=== PATIENT | female | born 1955 | race Caucasian/White ===

== ENCOUNTER 2025-06-26 11:24 | Emergency (ER) | payer MEDICARE, SELFPAY ==
--- NOTE | ~2025-06-26 | CT_ITS ---
EXAMINATION: CT abdomen pelvis w con DATE: 06/26/2025 14:50 INDICATION: Abdominal pain. TECHNIQUE: Computed tomography (CT) of the abdomen and pelvis was performed with 100 mL Omnipaque 350 intravenous contrast. Automated exposure control and iterative reconstruction technique were employed. The dose-length product was 1245.12 mGy-cm. COMPARISON: None. FINDINGS: The visualized portions of the lung bases demonstrate mild atelectasis. No pleural effusion. The heart size is normal. No pericardial effusion. The liver and spleen are normal. There are changes of cholecystectomy. The pancreas, adrenal glands, and kidneys are normal. There are scattered dive rticula in the colon. There is wall thickening of the sigmoid colon with surrounding fat stranding centered at a diverticulum, consistent with diverticulitis. The appendix is normal. There are no pathologically enlarged lymph nodes. There is trace pelvic ascites. There is a stent in left common iliac vein. There is severe lumbar spondylosis and moderate thoracic spondylosis. There is mild chronic anterior wedging of multiple thoracic vertebral bodies. IMPRESSION: 1. Acute sigmoid diverticulitis. No perforation or abscess. Reviewed, dictated and finalized at location E.
[2025-06-26 11:41] VITALS: BP 180/90; PULSE 90; RESP 16; TEMP 36.8; O2SAT 98
[2025-06-26 13:12] VITALS: BP 149/86; PULSE 86; RESP 20; O2SAT 98; O2SAT 99
--- NOTE | 2025-06-26 13:21 | ED.GENADULT ---
HPI - General Adult General Chief complaint: Abdominal Pain Stated complaint: Abd pain x 3 days-Hx diverticulitis Time Seen by Provider: 06/26/25 13:08 History of Present Illness HPI narrative: 70-year-old female presents to the emergency department for evaluation for lower abdominal pain. Patient does have a prior history of diverticulitis but patient has never required any surgical intervention for the diverticulitis. Patient reports he has never had any complicated versions of this. Patient reports symptoms started approximately 3-4 days ago. Related Data Allergies Allergy/AdvReac Type Severity Reaction Status Date / Time lisinopril Allergy Severe angioedema Verified 06/26/25 11:26 Review of Systems Review of Systems: All systems reviewed & are unremarkable except as noted in HPI and below Exam Narrative: APPEARANCE: Well appearing, no pain, no distress, well-nourished. HEAD: normocephalic, atraumatic. EYES: PERRLA/EOMI, conjunctivae clear. NOSE: Normal no drainage EARS:TMS clear with good light reflex. THROAT: Pharynx clear, no exudate. NECK: Supple. No adenopathy, no masses. RESPIRATORY: Airway patent, respirations nonlabored. Clear to auscultation bilaterally, no rales, rhonchi, wheezing. CARDIOVASCULAR: Regular rate and rhythm without murmurs rubs or gallops. ABDOMINAL: Left lower quadrant tenderness to palpation MUSCULOSKELETAL: Moves all extremities. Strength/ROM intact, No edema, No calf tenderness. NEURO: Alert. Cranial nerves II through XII intact. Good gait. Good coordination SKIN: Warm, dry. Normal Color Course Vital Signs Vital signs: Vital Signs Temperature 98.2 F 06/26/25 11:41 Pulse Rate 90 06/26/25 11:41 Respiratory Rate 16 06/26/25 11:41 Blood Pressure 180/90 H 06/26/25 11:41 Pulse Oximetry 98 06/26/25 11:41 Temperature 98.2 F 06/26/25 11:41 Pulse Rate 86 06/26/25 13:12 Respiratory Rate 20 06/26/25 13:12 Blood Pressure 149/86 H 06/26/25 13:12 Pulse Oximetry 98 06/26/25 13:12 Medical Decision Making [facility] Narrative Medical decision making narrative: 70-year-old female presenting to the emergency department for evaluation of 3-4 days of left lower quadrant pain which patient attributed to diverticulitis. Patient is currently afebrile with no leukocytosis and hemoglobin of 12.6. Patient has no significant acute abnormalities on her CMP urine was negative for infection. CT scan does show evidence of acute uncomplicated diverticulitis. Patient was started on Augmentin the emergency department. Differential Diagnosis Differential Diagnosis: Colitis, diverticulitis, perforation, bowel obstruction, UTI ureteral calculi Vital Signs Vital Signs: Vital Signs Temperature 98.2 F 06/26/25 11:41 Pulse Rate 90 06/26/25 11:41 Respiratory Rate 16 06/26/25 11:41 Blood Pressure 180/90 H 06/26/25 11:41 Pulse Oximetry 98 06/26/25 11:41 Temperature 98.2 F 06/26/25 11:41 Pulse Rate 86 06/26/25 13:12 Respiratory Rate 20 06/26/25 13:12 Blood Pressure 149/86 H 06/26/25 13:12 Pulse Oximetry 98 06/26/25 13:12 Lab Data Lab results reviewed: Yes I reviewed the patient's lab results. 06/26/25 13:34 06/26/25 13:34 Labs: Lab Results 06/26/25 06/26/25 Range/Units 13:29 13:34 WBC 9.8 (4.5-10.0) K/mm3 RBC 4.39 (4.2-5.4) M/mm3 Hgb 12.6 (12.0-15.0) g/dL Hct 39.5 (37.0-47.0) % MCV 90.0 (80-100) fl MCH 28.7 (26-34) pg MCHC 31.9 L (32-36) g/dl RDW 12.4 (11.5-14.5) % Plt Count 188 (150-375) k/mm3 MPV 11.4 H (7.4-10.4) fl Immature Gran % (Auto) 0.4 (0-0.5) % Neut % (Auto) 67.7 (45.5-73.1) % Lymph % (Auto) 20.6 (18.3-44.2) % [place] % (Auto) 8.2 (2.6-8.5) % Eos % (Auto) 2.7 (0-4.4) % Baso % (Auto) 0.4 (0.2-1.2) % Lymph # (Auto) 2.01 (0.9-3.2) K/mm3 [place] # (Auto) 0.8 H (0.1-0.6) K/mm3 Eos # (Auto) 0.3 (0-0.3) K/mm3 Baso # (Auto) 0.0 (0.0-0.1) K/mm3 Abs Immat Gran (auto) 0.04 H (0.00-0.031) K/mm3 Absolute Neuts (auto) 6.6 (1.3-6.7) K/mm3 Absolute Nucleated RBC 0.000 (0.0-0.012) K/mm3 Nucleated RBC % 0.0 (0.0-0.2) % Sodium 139 (137-145) mmol/L Potassium 3.9 (3.4-5.0) mmol/L Chloride 103 (98-107) mmol/L Carbon Dioxide 30 (22-30) mmol/L Anion Gap 6 (4-12) mmol/L BUN 17 (7-17) mg/dL Creatinine 1.03 H (0.7-1.0) mg/dL Estim Creat Clear Calc 51 ml/min Estimated GFR 53 L (59 - ) Glucose 68 (65-110) mg/dL Calcium 9.0 (8.4-10.2) mg/dL Total Bilirubin 0.4 (0.2-1.3) mg/dL AST 36 (14-36) U/L ALT 27 (6-35) U/L Alkaline Phosphatase 96 (38-126) U/L Total Protein 7.7 (6.3-8.2) g/dL Albumin 4.4 (3.5-5.1) g/dL Lipase 152 (23-300) U/L Urine Color Yellow (Yellow) Urine Appearance Cloudy H (Clear) Urine pH 7.5 (5.0-9.0) Ur Specific [place] 1.014 (1.001-1.035) Urine Protein Negative (Negative) mg/dL Urine Glucose (UA) Negative (Negative) mg/dL Urine Ketones Negative (Negative) mg/dL Ur Blood (Man) Negative (Negative) Urine Nitrate Negative (Negative) Urine Bilirubin Negative (Negative) Urine Urobilinogen 0.2 (<2.0) mg/dL Leukocyte Esterase Rfl Trace H (Negative) ESTEFANY/UL Urine RBC 0-2 (0-2) /hpf Urine WBC 0-5 (0-3) /hpf Ur Squamous Epith Cells None seen (Few) /hpf Urine Bacteria None seen /hpf Urine Casts 0-2 Imaging Data Radiologist's impression: Impressions Abdomen/Pelvis CT 06/26/25 15:02 IMPRESSION: 1. Acute sigmoid diverticulitis. No perforation or abscess. Discharge Plan Discharge Clinical Impression: Sigmoid diverticulitis Patient Disposition: Home Condition: Stable Instructions: Antibiotic Form, Diverticulitis (DC), Abdominal Pain (ED) Additional Instructions: Antibiotic as directed until completed for sigmoid diverticulitis. Zofran as needed for nausea control. [place] as needed for pain control. Have close follow-up with GI. If you have any worsening symptoms then please call or return to the emergency department. Patient Language: Polish Prescriptions: New hydrocodone-acetaminophen 5-325 mg tablet 1 tablet PO Q12H PRN (Reason: pain) Qty: 14 0RF amoxicillin-pot clavulanate 875-125 mg tablet 1 tablet PO Q12H 7 Days Qty: 14 0RF ondansetron 4 mg tablet,disintegrating 4 mg PO Q8H PRN (Reason: nausea and vomiting) Qty: 14 0RF Follow-up/Referrals: Coleen,DO Benjamin [Primary Care Provider, Family Practice] Migue Rose MD [Physician, Gastroenterology]
[2025-06-26 13:44] LABS: Add Urine Microscopic? YES; Appearance Urine Cloudy (Clear); Glucose Urine UA Negative (Negative); Leukocyte Esterase Ur Trace LEU/UL (Negative); Nitrate Urine Negative (Negative); Non Pathogenic Casts 0-2; Specific Grav Ur 1.014 (1.001-1.035)
[2025-06-26 13:45] LABS: Hematocrit 39.5 % (37.0-47.0); Hemoglobin 12.6 g/dL (12.0-15.0); Immature Granulocyte Percent A 0.4 % (0-0.5); Lymphocytes Absolute Auto 2.01 K/mm3 (0.9-3.2); Mean Corpuscular HGB Conc 31.9 g/dl (32-36); Mean Corpuscular Hemoglobin 28.7 pg (26-34); Mean Corpuscular Volume 90.0 fl (80-100); Nucleated Red Blood Cells Absolute Auto 0.000 K/mm3 (0.0-0.012); Nucleated Red Blood Cells Perc 0.0 % (0.0-0.2); Platelet Count Result 188 k/mm3 (150-375); Red Blood Count 4.39 M/mm3 (4.2-5.4); White Blood Count 9.8 K/mm3 (4.5-10.0)
[2025-06-26 14:00] LABS: Alanine Aminotransferase 27 U/L (6-35); Albumin Level 4.4 g/dL (3.5-5.1); Alkaline Phosphatase 96 U/L (38-126); Anion Gap 6 mmol/L (4-12); Aspartate Amino Transferase 36 U/L (14-36); Bilirubin,Total 0.4 mg/dL (0.2-1.3); Blood Urea Nitrogen 17 mg/dL (7-17); Calcium 9.0 mg/dL (8.4-10.2); Carbon Dioxide 30 mmol/L (22-30); Chloride 103 mmol/L (98-107); Estimated CRCL calculation 51 ml/min; Estimated Glomerular Filt Rate 53; Glucose 68 mg/dL (65-110); Lipase 152 U/L (23-300); Potassium 3.9 mmol/L (3.4-5.0); Sodium 139 mmol/L (137-145); Total Protein 7.7 g/dL (6.3-8.2)
--- OUTSIDE RECORDS SUMMARY | 2025-06-26 14:15 | XMS_ITS | Encounter Summary ---
Author Organization [facility] Address 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
--- OUTSIDE RECORDS SUMMARY | 2025-06-26 14:15 | XMS_ITS | Encounter Summary ---
Author Organization [facility] Address [address] [place] [address] Care Team Providers Care Ict Managers Name Role Phone Erika Tolliver MD Primary Care Provider Encounter Details Date Type Department Care Team (Late st Contact Info) Description 03/02/1999 Outpatient Historical [facility] Internal Medicine [facility] [address] [place] [phone] Erika Tolliver MD [address] [place] [phone] Social History Tobacco Use Types Packs/Day Years Used Date Smoking Tobacco: Never Assessed Comments Unknown Sex and Gender Information Value Date Recorded Sex Assigned at Not on file 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
--- OUTSIDE RECORDS SUMMARY | 2025-06-26 14:15 | XMS_ITS | Encounter Summary ---
Author Organization [facility] Address 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
--- OUTSIDE RECORDS SUMMARY | 2025-06-26 14:15 | XMS_ITS | Encounter Summary ---
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
--- OUTSIDE RECORDS SUMMARY | 2025-06-26 14:15 | XMS_ITS | Clinical Summary ---
Author Organization [facility] Address [address] [place] [address] Care Team Providers Care Reading Efficiency Course Director Name Role Phone Salo Ogden MD Primary Care Provider [phone] Source Comments [facility],non-[facility] Affiliates and Associated Physician Practices is amultiple site organization consisting of ambulatory clinics and hospital sitesin [place], [place], [place] and [place]. This disclosure is being madepursuant to the Care Everywhere program and may not contain all information available regarding this patient. 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 Gender Identity Not on file Sexual Orientation Not on file Plan of Treatment Health Maintenance Due Date Last Done Comments BONE DENSITY TESTING 1955 COLOGUARD (AGES 45-75) - COL ON CA SCREENING 1957 COLON MONITORING 1957 COLONOSCOPY - COLON CA SCREENING 1957 CT COLONOGRAPHY - COLON CA SCREENING 1957 Colorectal Cancer Screening 1957 FIT - COLON CA SCREENING 1957 FLEX SIG - COLON CA SCREENING 1957 LIPID TESTING 1957 MAMMOGRAM 1957 HEPATITIS C SCREENING 03/07/1975 DTAP/TDAP/TD VACCINES (1 - Tdap) 1976 PNEUMOCOCCAL VACCINE 50+ (1 of 1 - PCV) 2007 ZOSTER VACCINE (1 of 2) 2007 DEPRESSION SCREENING 10/09/2024 COVID-19 VACCINE (2023-2 5 season) 2025 INFLUENZA VACCINE (#1) 2025 Respiratory Syncytial Virus (RSV) Vaccine Pt: or over 60 yrs (1 - 1-dose 75+ series) 2032 HEPATITIS B VACCINE Aged Out No longe r eligible based on patient's age to complete this topic HIB VACCINE Aged Out No longer eligi ble based on patient's age to complete this topic HPV VACCINE Aged Out No longer eligi ble based on patient's age to complete this topic MENINGOCOCCAL (Group B) VACC INE SHARED DECISION-MAKING Aged Out No longer eligibl e based on patient's age to complete this topic MENINGOCOCCAL GROUPS A/C/Y/W VACCINE Aged Out No longer eligible b ased on patient's age to complete this topic Care Teams Reading Efficiency Course Director Relationship Specialty [place] [address] [address] PCP - General 05/16/08
--- OUTSIDE RECORDS SUMMARY | 2025-06-26 14:15 | XMS_ITS | Clinical Summary ---
Author Organization [facility] Address [address] [place] [address] Care Team Providers Care Linux System Engineer Name Role Phone Salo Ogden MD Primary Care Provider [phone] Cherry Sifuentes OT Unavailable [phone] Allergies Active Allergy Reactions Criticality Noted Date Comments Teja Inhibitors Hives High 05/17/2018 Lisinopril Angioedema High 07/20/2020 Patient states she is allergic to teja inhibitors. Medications sertraline (ZOLOFT) 100 mg tabletIndications: depression Take 200 mg by mouth daily Active buPROPion XL (WELLBUTRIN XL) 300 mg 24 hr tabletIndications: major depressive disorder Take 300 mg by mouth every morning Active famotidine (PEPCID) 20 mg tabletIndications: Heartburn Take 20 mg by mouth 2 (two) times a day Active verapamil ER (VERELAN) 240 mg 24 hr capsule Take 240 mg by mouth nightly Active albuterol HFA (PROVENTIL HFA,VENTOLIN HFA,PROAIR HFA) 90 mcg/actuation inhaler Inhale 2 puffs every 4 (four) hours as needed for wheezing or shortness of breath 1 Inhaler 0 Active ALPRAZolam (XANAX) 0.5 mg tablet Take 0.5 mg by mouth nightly as needed Active cholecalciferol (Vitamin D3) 5,000 unit tablet Take 5,000 Units by mouth 2 (two) times a day 1 Active diphenhydrAMINE (diphenhydrAMINE) 25 mg capsule Take 25 mg by mouth daily as needed 1 Active fexofenadine-pseud oephedrine (Nanci-D 24 Hour) 180-240 mg per 24 hr tablet Take 1 tablet by mouth daily as needed Active fluticasone propionate (FLONASE) 50 mcg/actuation nasal spray Administer 1 spray into each nostril daily as needed 1 Active fluticasone furoate-vilanteroL (BREO ELLIPTA) 100-25 mcg/dose diskus inhaler Inhale 1 puff daily As needed for allergies 1 Active hyoscyamine (OSCIMIN) 0.125 mg Take 0.125 mg by mouth every 6 (six) hours as needed Active ibuprofen (ibuprofen) 200 mg tab/cap 800 mg every 8 (eight) hours as needed Active loratadine (CLARITIN) 10 mg tablet Take 10 mg by mouth daily as needed 1 Active omega 7-nyb-blv-fish oil (Fish Oil) 300-1,000 mg capsule Take 1 capsule by mouth 2 (two) times a day 1 Active Nurtec ODT tablet,disintegrat ing TAKE 1 TABLET ORALLY EVERY DAY NEEDED FOR MIGRAINES 1 Active rizatriptan CREDIT CHARGE AUTHORIZER (MAXALT-CREDIT CHARGE AUTHORIZER) 10 mg disintegrating tablet Take 10 mg by mouth as needed Active rosuvastatin (CRESTOR) 10 mg tablet Take 10 mg by mouth 4 times a week. 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 With desaturations <88% on room air and systemic symptoms prior to admission. - Continues to require supplemental O2. No O2 requirement at baseline. - Treatment for COVID-19 as above. - Wean O2 as tolerated. COVID-19 virus infection 07/20/2020 Assessment & Plan (07/24/2020 1:10 PM CDT): Patient developed with pleurisy, SOB, dyspnea, dry cough, malaise, fatigue, and fever around 07/14/20. She tested positive for COVID-19 at an outside facility on 07/16/20. Subsequently was treating herself supportively at home for a few days before being admitted with worsening symptoms. - CXR on presentation with peripheral opacities in the left lung consistent with viral / COVID pneumonia. - Initial CRP 68.5 and d-dimer 1287. Will trend. - Continue dexamethasone 6 mg daily (07/20-07/29). - Finish remdesivir today (07/20-07/24). - Enrolled in [employer]ener[employer] antibody trial. Received dose on 07/22. - Walking O2 assessment this AM with no O2 requirement with rest or exertion. Assessment & Plan (07/20/2020 4:56 PM CDT): Patient started with pleurisy, SOB, dyspnea, dry cough, malaise, fatigue and fever for the past 6-7 days. She tested positive for COVID 5 days ago. She reports hypoxic episodes to the high 80s for which she has been using intermittent O2 for (her has home 02-- which is what she was using). ProBNP 418, trop I neg. -continuous tele -CXR: left lung opacity -EKG NSR -PRN tylenol -titrate O2 for SPO2 >92% -pending fibrinogen, ESR, CRP, d-dimer -ID consult for remdesivir evaluation -started on dex Q24 Hypertension 07/20/2020 Overview (07/20/2020): Stable -continue home verapamil Assessment & Plan (07/21/2020 8:37 AM CDT): - Continue home verapamil. - Monitor BP. Assessment & Plan (07/20/2020 4:57 PM CDT): Stable -continue home verapamil -monitor BP Migraine 07/20/2020 Assessment & Plan (07/21/2020 8:38 AM CDT): Stable. Well-controlled at home. - Continue Wellbutrin, sertraline, and verapamil. Assessment & Plan (07/20/2020 4:52 PM CDT): Stable, well controlled at home -continue wellbutrin, sertraline & verapamil Anemia 07/20/2020 Assessment & Plan (07/21/2020 8:41 AM CDT): Unsure if chronic, no labs for comparison. Hgb 11.5 (MCV 86) on presentation. Iron and trans sat low suggestive of iron deficiency. Ferritin may not be helpful in setting of COVID-19 diagnosis. - Trend CBC. - Consider iron supplementation. Assessment & Plan (07/20/2020 4:58 PM CDT): Unsure if chronic, not labs found in care everywhere. Hgb 11.5 in ED -CTM -iron panel pending Thrombocytopenia 07/20/2020 Assessment & Plan (07/21/2020 8:41 AM CDT): Very mild with platelets 145 in the ED. - Will monitor CBC. Assessment & Plan (07/20/2020 4:59 PM CDT): Unsure if chronic, no lab values noted in care everywhere. Plt 145 in ED -CTM -daily CBC -monitor for bleeding Asthma 07/20/2020 Assessment & Plan (07/21/2020 8:39 AM CDT): Generally well-controlled with albuterol at home. - Albuterol inhaler PRN. Assessment & Plan (07/20/2020 5:00 PM CDT): Well controlled on home albuterol until symptoms began 6-7 days ago. Has been using her albuterol inhaler Q4 and intermittent albuterol nebs -continue home albuterol inhaler -supplemental O2 Immunizations Immunization Administration Dates Next Due Hep B Vaccine 09/07/2018 Influenza, Quadrivalent, Aminta l Culture-based MDCK, Preservative Free, Antibiotic Free, Intramuscular 07/18/2019 Influenza, Trivalent, Preservative Free, Intramu scular 09/07/2018 Pfizer SARS-CoV-2 Monovalent Vaccination (12+ Yrs) PURPLE 11/18/2020,10/28/2020 Medical History Medical History Date Comments Asthma Arthritis Coronary artery disease 40% prox imal LAD lesion Hypertension Depression Family History Medical History Relation Name Comments Heart disease Brother Heart disease Father CAD Heart disease Maternal Grandmother Cancer Mother lung cancer d at 68 Stroke Sister Relation Name Status Comments Brother Father Maternal Grandmother Mother Sister Social History Tobacco Use Types Packs/Day Years Used Date Smoking Tobacco: Former Cigarettes Q uit: 2005 Smokeless Tobacco: Never Alcohol Use Standard Drinks/Week Comments Yes 1 (1 standard drink = 0.6 oz pur e alcohol) AUDIT-C Answer Date Recorded Q1: How often do you have a drink containing alc ohol? 2-4 times a month 04/19/2021 Q2: How many drinks containi ng alcohol do you have on a typical day when you are drinking? 1 or 2 04/19/2021 Q3: How often do you have si x or more drinks on one occasion? 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 Gender Identity Female 01/03/2022 3:15 PM CDT Sexual Orientation Straight 01/03/2022 3: 15 PM CDT Obstetrics History Last Filed Vital Signs Vital Sign Reading Time Taken Comments Blood Pressure 118/79 07/26/2021 10:20 AM CDT Pulse 91 07/26/2021 10:20 AM CDT Temperature 36.7 C (98.1 F) 04/19/2021 10:54 AM CDT Respiratory Rate 20 07/24/2020 7:45 AM CDT Oxygen Saturation 97% 07/26/2021 10:20 AM CDT Inhaled Oxygen Concentration - - Weight 97.5 kg (215 lb) 07/26/2021 10:20 AM CDT Height 165.1 cm (5' 5) 07/26/2021 10:20 AM CDT Body Mass Index 35.78 07/26/2021 10:20 AM CDT Plan of Treatment Health Maintenance Due Date Last Done Comments Breast Cancer Screening-Mammogram 1957 Colon Cancer Screening-Colonoscopy 1957 Depression Screening 1957 Hepatitis C Screening 1957 Osteoporosis Screening-Bone Density Scan 1957 DTaP/Tdap/Td Vaccine (1 - Tdap) 1968 Pneumococcal vaccine 65+ (1 of 2 - PCV) 1976 Zoster Vaccine (1 of 2) 2007 Fall Risk Assessment 07/24/2021 07/24/2020 Well Visit 65+ 2022 Covid-19 Vaccine ( season) 2025 07/02/2021, 11/18/2020, 10/28/2020 Influenza Vaccine (#1) 2025 07/18/2019, 2017 Hepatitis B Screening Completed 09/07/2018 Insurance [facility] [employer] CHOICE [facility]PPO Address: [address] [address] [place] [address] [facility] ACCESS CHOICE Advance Directives For more information, please contact: [phone] * Full Code (Latest Code Status on File) Date Activated Date Inactivated Comments 07/20/2020 6:34 PM 07/24/2020 11:11 PM Care Teams Linux System Engineer Relationship Specialty [place] [address] [place] [address] PCP - General 07/20/20 [place] [address] [address] [place] [address] Occupational Therapist Occupational Therapy 02/15/21
--- OUTSIDE RECORDS SUMMARY | 2025-06-26 14:15 | XMS_ITS | Encounter Summary ---
Author Organization [facility] Address 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
--- OUTSIDE RECORDS SUMMARY | 2025-06-26 14:15 | XMS_ITS | Encounter Summary ---
Author Organization [facility] Address 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
--- OUTSIDE RECORDS SUMMARY | 2025-06-26 14:15 | XMS_ITS | Clinical Summary ---
Author Organization [facility] Address [address] [place] [place] [address] Care Team Providers Care Rn Medical Surgical Name Role Phone Erika Tolliver MD Primary Care Provider Medications HYDROcodone-teja taminophen (NORCO) 10-325 mg Tablet Take 1 Tablet by mouth every 4 hours. Max Daily Amount: 6 Tablets 42 Tablet 12/19/2022 2:54 PM CDT 12/19/2022 Active buPROPion HCL (WELLBUTRIN XL) 300 mg Extended Release 24 hour tablet Take 1 Tablet (300 mg) by mouth daily in the morning. 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 Gender Identity Not on file Sexual Orientation Not on file Plan of Treatment Health Maintenance Due Date Last Done Comments DTAP/TDAP/TD VACCINES (1 - Tdap) 1976 PNEUMOCOCCAL VACCINE 50+ YEA RS (1 of 2 - PCV) 1976 BREAST CANCER SCREENING 1997 COLORECTAL SCREENING 2002 Colorectal Cancer Screening 2002 FIT-DNA Q 3 years 2002 FIT/FOBT Q 1 year 2002 Flex Sig/CT Colonography Q 5 years 2002 ZOSTER VACCINE (1 of 2) 2007 RSV VACCINE (60+ or ) (1 - Risk 60-74 years 1-dose series) 2017 OSTEOPOROSIS SCREENING 2022 INFLUENZA VACCINE (#1) 2025 07/18/2019, 2017 COVID-19 Vaccine ( season) 06/09/202507/2021, 10/28/2020 Insurance MEDICARE PART A AND B AARP 2ND TO MEDICARE RX [facility] Medicare Part D [id number] [place] [id number] Care Teams Rn Medical Surgical Relationship Specialty Start Date End Date Erika Tolliver MD PCP - General 12/21/00
--- OUTSIDE RECORDS SUMMARY | 2025-06-26 14:15 | XMS_ITS | Encounter Summary ---
Author Organization [facility] Address 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
[2025-06-26] MEDS: HYDROcodone/acetaminophen (*CRX) 7.5-325 MG TABLET 1 TAB PO (15:48)
== END 2025-06-26 15:55 | disposition home or self-care (01) ==
PROVIDERS: Emergency Provider Emergency Medicine; PCP Family Medicine
DX: K57.32 Diverticulitis of large intestine without perforation or abscess without bleeding (principal)
CPT/HCPCS: 36415; 74177; 80053; 81001; 83690; 85025; 99284; A9270; Q9967